=== PATIENT | male | born 1950 | race Caucasian/White ===

== ENCOUNTER → 2019-10-03 | Outpatient (CLI) | payer MEDICARE, OTHER ==
[~2019-10-03] MED LIST: AMLO10; ATEN50; ATOR10; Hydrochlorothia25 MG; Lovastatin20 MG; OMEPRAZOLE MAGN20 MG
== END | disposition home or self-care (01) ==
LOC: PLD 12:56 → LAB SHORT 12:56
DX: D21.20 Benign neoplasm of connective and other soft tissue of unspecified lower limb, including hip (principal); M79.673 Pain in unspecified foot; M89.8X9 Other specified disorders of bone, unspecified site; M19.079 Primary osteoarthritis, unspecified ankle and foot; M20.21 Hallux rigidus, right foot; M72.2 Plantar fascial fibromatosis
CPT/HCPCS: 88305

== ENCOUNTER 2023-04-15 14:52 | Emergency (ER) | payer MEDICARE, OTHER ==
[~2023-04-15] VITALS: Ht 170.2 cm; Wt 95.2 kg
[2023-04-15 15:24] VITALS: BP 163/82
== END 2023-04-15 19:43 | disposition home or self-care (01) ==
LOC: ER 14:52
DX: S61.217A Laceration without foreign body of left little finger without damage to nail, initial encounter (principal); Z79.899 Other long term (current) drug therapy; Z87.891 Personal history of nicotine dependence; W23.0XXA Caught, crushed, jammed, or pinched between moving objects, initial encounter
CPT/HCPCS: 12002; 73140; 90471; 90714; 90715; 99283-25

== ENCOUNTER → 2024-04-18 | Outpatient (CLI) | payer OTHER ==
[~2024-04-18] MED LIST changes: +ASCO500 PO; +Aspir 8181 MG PO; +COENZYME Q-1030 MG PO; +FINA5 PO; +FISH OIL 1,0001 EA10 PO; -Lovastatin20 MG; +Lovastatin20 MG PO; +TAMS.4ER PO; +ZESTORETIC 20-1 EAC1 PO
[2024-04-18 11:30] LABS: Bun/Creatinine Ratio 19.8 (12.0-20.0); Calcium, Blood 9.3 mg/dL (8.5-10.1); Creatinine, Blood 0.91 mg/dL (0.60-1.20); Potassium, Blood 4.2 mmol/L (3.5-5.5); Uric Acid, Blood 6.7 mg/dL (3.5-7.2)
== END | disposition home or self-care (01) ==
LOC: LAB 11:20 → LAB SHORT 11:20
PROVIDERS: Family Medicine
DX: M10.9 Gout, unspecified (principal)
CPT/HCPCS: 80048; 84550